=== PATIENT | female | born 2000 | race Caucasian/White ===

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

== ENCOUNTER 2019-02-28 11:53 | Emergency (ER) | payer OTHER ==
[~2019-02-28] VITALS: Ht 165.1 cm; Wt 71.8 kg
[~2019-02-28 11:53] MED LIST: CYCL5TAB PO; LIDO5DIS41 TOP; MELO15TA28 PO
[2019-02-28 11:54] VITALS: BP 131/74
[2019-02-28] MEDS ORDERED: VIGA0.02 OP (12:10)
[2019-02-28] MEDS ORDERED: NS 1,000 ML IV SCH (12:24)
[2019-02-28] MEDS ORDERED: PANTOPRAZOLE 40MG INJ (PROTONIX) (C9113) IV ONE (12:30)
[2019-02-28] MEDS ORDERED: KETOROLAC 30 MG/ML VIAL (J1885) IV ONE (12:30)
[2019-02-28] MEDS ORDERED: SUCRALFATE 1 GM TAB PO ONE (12:30)
== END 2019-02-28 12:25 | disposition home or self-care (01) ==
LOC: M ED 11:53
DX: H10.9 Unspecified conjunctivitis (principal); Z88.1 Allergy status to other antibiotic agents; Z88.6 Allergy status to analgesic agent; Z88.8 Allergy status to other drugs, medicaments and biological substances

== ENCOUNTER → 2019-11-05 | Outpatient (CLI) | payer OTHER ==
[~2019-11-05] MED LIST changes: +VIGA0.02 OP
[2019-11-05 12:21] LABS: HEMATOCRIT 43.1 % (36.0-47.0); MEAN CORPUSCULAR HEMOGLOBIN 27.6 pg (27.0-33.0); MEAN CORPUSCULAR HGB CONC 30.2 g/dl (32.0-36.5); MEAN CORPUSCULAR VOLUME 91.5 fl (80.0-96.0); PLATELET COUNT, AUTOMATED 261 10^3/uL (150-450); RED BLOOD COUNT 4.71 10^6/uL (4.00-5.40); WHITE BLOOD COUNT 4.8 10^3/uL (4.0-10.0)
--- NOTE | 2019-11-05 14:03 | REP ---
Pelvic ultrasound for pelvic pain , vaginal bleeding, question ectopic gestation: The study is performed with transabdominal, endovaginal and Doppler ultrasound assessment: The bladder is adequately distended. The uterus is anteverted and normal size measuring 6.4-0.4 x 4.1 cm. The endometrium is not thickened measuring 4 mm. Right ovary: The right ovary measures 2.4 x 1.7 x 2.2 cm and is normal size. There is an 8 mm right ovarian follicle. There is right ovarian vascular flow, the Doppler resistive index of the parenchymal arteries is 0.55. Left ovary: Left ovary is enlarged measuring 5.6 x 4.4 x 4.7 cm. There is a left ovarian cyst containing a septation measuring 4.9 x 3.9 x 4.1 cm. There is vascular flow, the Doppler resistive index of the parenchymal arteries is 0.48. There is no free fluid in the pelvis. Impression: There is no intrauterine gestation. There is a 4.9 cm left ovarian cyst containing a septation. Ectopic cannot be discounted. Laboratory and clinical follow-up is recommended. The Electronically Signed by Chandana Leon MD 11/05/2019 01:53 P
[2019-11-05 14:20] LABS: CHLAMYDIA DNA AMPLIFICATION NEGATIVE (NEGATIVE); GC DNA AMPLIFICATION NEGATIVE (NEGATIVE)
== END ==
LOC: M RAD 11:25
PROVIDERS: ATTEND Registered Nurse Maternal Newborn
DX: O26.859 Spotting complicating pregnancy, unspecified trimester (principal); O34.80 Maternal care for other abnormalities of pelvic organs, unspecified trimester; Z3A.00 Weeks of gestation of pregnancy not specified

== ENCOUNTER → 2019-11-22 | Outpatient (CLI) | payer OTHER ==
--- NOTE | 2019-11-22 10:34 | REP ---
Clinical: Left ovarian mass. Comparison: 11/05/2019. Technique: Transabdominal pelvic ultrasound followed by transvaginal examination for better evaluation of the endometrium and adnexa with color Doppler evaluation of the ovaries. Findings: Bladder is unremarkable and measures 4.2 x 1.9 x 6.2 cm. Anteverted septate uterus measures 6.9 x 2.9 x 4.6 cm. The right endometrial complex measures 7 mm thickness and the left endometrial complex measures 11 mm thickness. No further uterine or endometrial abnormality noted. Bilateral ovaries are normal in vascularity without torsion. Left ovary measures 2.2 x 1.6 x 2.0 cm (RI 0.58) and the previously noted lesion has resolved. Right ovary measures 4.2 x 2.2 x 2.9 cm (RI 0.55) and a complex hemorrhagic cyst is identified measuring 2.5 x 1.4 x 1.8 cm. No pelvic fluid or adnexal mass lesion. Impression: 1. Previously identified left hemorrhagic physiologic cyst has resolved. New hemorrhagic physiologic cyst identified in the right ovary. 2. Septate uterus. Electronically Signed by Moises Diaz MD 11/22/2019 10:25 A
== END ==
LOC: M RAD 09:33
PROVIDERS: ATTEND Obstetrics & Gynecology
DX: N83.202 Unspecified ovarian cyst, left side (principal)

== ENCOUNTER 2019-12-01 08:55 | Emergency (ER) | payer OTHER ==
[~2019-12-01] VITALS: Ht 167.6 cm; Wt 76.0 kg
[2019-12-01 08:56] VITALS: BP 142/65
[2019-12-01] MEDS ORDERED: IBUPROFEN 800 MG TAB PO ONE (09:15)
[2019-12-01] MEDS ORDERED: ACETAMINOPHEN 325 MG TAB PO ONE (09:15)
--- NOTE | 2019-12-01 09:54 | REP ---
Clinical: Trauma. Technique: Frontal view of the chest with four views of the right hemithorax. Findings: Frontal view of the chest demonstrates no acute cardiopulmonary process. Multiple views of the right hemithorax demonstrates no obvious acute rib fracture or pathology. Impression: Normal the right rib series Electronically Signed by Moises Diaz MD 12/01/2019 09:34 A
== END 2019-12-01 10:10 | disposition home or self-care (01) ==
LOC: M ED 08:55
DX: S20.211A Contusion of right front wall of thorax, initial encounter (principal); W18.2XXA Fall in (into) shower or empty bathtub, initial encounter; Y92.002 Bathroom of unspecified non-institutional (private) residence as the place of occurrence of the external cause; Z88.8 Allergy status to other drugs, medicaments and biological substances

== ENCOUNTER 2019-12-08 08:48 | Emergency (ER) | payer OTHER ==
[~2019-12-08] VITALS: Ht 165.1 cm; Wt 78.7 kg
[2019-12-08] MEDS ORDERED: ONDANSETRON 4 MG ORAL DISINTEGRATING TAB (Q0162 PER 1MG) PO ONE (09:30)
[2019-12-08] MEDS ORDERED: KETOROLAC TROMETHAMINE 10 MG TAB PO ONE (09:30)
[2019-12-08] MEDS ORDERED: NORCO, ANEXSIA 5/325MG TABLET (HYDROcodone/ACETAMINOPHEN) PO ONE (10:15)
--- NOTE | 2019-12-08 11:18 | REP ---
PELVIC ULTRASOUND: Real-time sonographic evaluation of the pelvis performed. Transabdominal and endovaginal technique is utilized. Bladder measures 5.2 x 2.1 x 7.3 cm. Uterus measures 7.6 x 2.5 x 4.0 cm. Uterus has a septate configuration. Endometrial thickness in both the right and left horns is 2 mm. There is no endometrial fluid collection. Ovaries appear normal in size and echotexture, right ovary measuring 3.4 x 2.1 x 2.4 cm and left ovary 3.2 x 1.7 x 2.3 cm. No ovarian cyst is seen. Previously noted complex cyst right ovary has resolved since the exam of 11/22/2019. There is no evidence of ovarian torsion with duplex Doppler evaluation. No free fluid is seen. Nabothian cyst subcentimeter in diameter is seen in the posterior cervix. IMPRESSION: Negative pelvis ultrasound. No ovarian cyst at this time. No free fluid. No torsion. Electronically Signed by Chandana Saleh MD 12/08/2019 03:13 P
[2019-12-08 11:41] LABS: BASO % 0.6 % (0.0-1.0); EOS # 0.1 10^3/uL (0.0-0.5); EOS % 1.1 % (0.0-3.0); HEMATOCRIT 40.4 % (36.0-47.0); HEMOGLOBIN 12.8 g/dl (12.0-15.5); LYMPH # 1.6 10^3/uL (1.5-5.0); LYMPH % 30.2 % (24.0-44.0); MEAN CORPUSCULAR HEMOGLOBIN 28.2 pg (27.0-33.0); MEAN CORPUSCULAR HGB CONC 31.7 g/dl (32.0-36.5); MONO # 0.4 10^3/uL (0.0-0.8); MONO % 6.9 % (0.0-5.0); NEUTROPHILS # 3.2 10^3/uL (1.5-8.5); PLATELET COUNT, AUTOMATED 261 10^3/uL (150-450); RED BLOOD COUNT 4.54 10^6/uL (4.00-5.40); WHITE BLOOD COUNT 5.2 10^3/uL (4.0-10.0)
[2019-12-08] MEDS ORDERED: ISOVUE-370 76% 100ML VIAL (Q9967) As Ordered ONE (11:54)
[2019-12-08 12:10] LABS: ALBUMIN 3.9 GM/DL (3.2-5.2); BILIRUBIN,DIRECT 0.1 MG/DL (0.0-0.2); BILIRUBIN,TOTAL 0.3 MG/DL (0.2-1.0)
[2019-12-08] MEDS ORDERED: MORPHINE 4 MG/ML 1ML VIAL/SYRINGE (J2270) IV ONE (12:15)
--- NOTE | 2019-12-08 12:25 | REP ---
CT of the abdomen and pelvis with IV contrast, without bowel contrast for left lower quadrant pain. There are no comparisons. The visualized lung dennis are unremarkable. The hepatic parenchyma, gallbladder, pancreas, spleen, adrenals, kidneys, and abdominal aorta are unremarkable. There is no hydronephrosis. No renal calculi. No ureteral calculi. There is no periaortic adenopathy or mass. Pelvis: The appendix is not identified, however, there is no pericecal inflammation or abscess. The uterus is unremarkable. There are follicles in each ovary. There is no dominant ovarian mass or cyst. There is no ascites or adenopathy. The pelvic bowel loops are unremarkable. Impression: Essentially negative CT of the abdomen and pelvis. Electronically Signed by Chandana Leon MD 12/08/2019 12:16 P
[2019-12-08] MEDS ORDERED: ONDANSETRON 4MG/2ML VIAL (J2405) IV ONE (12:30)
[2019-12-08 15:39] LABS: CHLAMYDIA DNA AMPLIFICATION NEGATIVE (NEGATIVE); GC DNA AMPLIFICATION NEGATIVE (NEGATIVE)
[2019-12-08] MEDS ORDERED: DIFL150T PO (16:19)
[2019-12-08 16:25] VITALS: BP 131/73
== END 2019-12-08 16:34 | disposition home or self-care (01) ==
LOC: M ED 08:48
DX: B37.3 Candidiasis of vulva and vagina (principal); Z88.8 Allergy status to other drugs, medicaments and biological substances
CPT/HCPCS: 74177; 76830; 76856; 80047; 80076; 81001; 83690; 84702; 85025; 87210; 87661; 93976; 96374; 96375; 99284; J2270; J2405; Q0162; Q9967

== ENCOUNTER → 2019-12-09 | Outpatient (CLI) | payer OTHER ==
[~2019-12-09] MED LIST changes: +ACET1TAB55 PO; +DIFL150T PO; +IBUP1TAB7 PO; +IBUP80TA PO; +PROHANCE 279.3MG/ML 15ML VIAL (A9576) As Ordered ONE; +REGL10TA6 PO
--- NOTE | 2019-12-10 09:28 | REP ---
MRI PELVIS WITHOUT AND WITH IV CONTRAST: HISTORY: Intrauterine septum. Comparison pelvic sonography, December 08, 2019. Comparison CT study, December 08, 2019. Pelvic sonography from November 22, 2019 was read as septate uterus. TECHNIQUE: Axial, coronal, and sagittal imaging planes are utilized. T1- and T2-weighted scans were included with and without fat saturation. Diffusion weighted scans and postcontrast images are included. Gadolinium enhancement dose is 15 mL of intravenous ProHance. MRI FINDINGS: Cortical and medullary bone signal intensity are normal. Urinary bladder taylor are smooth. No free fluid is seen. No pelvic mass or adenopathy is observed. Normal ovaries are seen bilaterally. Uterine external fundal contour is maintained and normal. There is a smooth broad indentation of the fundal endometrial canal measuring approximately 8 mm in greatest depth. The findings are consistent with arcuate uterus which is a mild Mullerian duct anomaly often classified as a normal variant. There is no evidence of uterine fibroid. Junctional zone and endometrial canal are unremarkable. No abnormal gadolinium enhancement is seen. Study is otherwise unremarkable. IMPRESSION: Arcuate uterus. Electronically Signed by Emir Choi MD 12/10/2019 09:31 A
== END ==
LOC: M RAD 16:13
PROVIDERS: ATTEND Obstetrics & Gynecology
DX: Q51.20 Other doubling of uterus, unspecified (principal)
CPT/HCPCS: 72197; A9576

== ENCOUNTER 2019-12-11 15:05 | Emergency (ER) | payer OTHER ==
[~2019-12-11] VITALS: Ht 165.1 cm; Wt 76.5 kg
[~2019-12-11 15:05] MED LIST changes: -ACET1TAB55 PO; -IBUP1TAB7 PO; -IBUP80TA PO; -PROHANCE 279.3MG/ML 15ML VIAL (A9576) As Ordered ONE; -REGL10TA6 PO
[2019-12-11] MEDS ORDERED: IBUP1TAB7 PO (15:17)
[2019-12-11] MEDS ORDERED: ACET1TAB55 PO (15:17)
[2019-12-11 16:25] LABS: BASO % 0.4 % (0.0-1.0); EOS # 0.1 10^3/uL (0.0-0.5); EOS % 1.2 % (0.0-3.0); HEMATOCRIT 42.5 % (36.0-47.0); HEMOGLOBIN 13.4 g/dl (12.0-15.5); LYMPH # 1.9 10^3/uL (1.5-5.0); LYMPH % 28.7 % (24.0-44.0); MEAN CORPUSCULAR HEMOGLOBIN 28.2 pg (27.0-33.0); MEAN CORPUSCULAR HGB CONC 31.5 g/dl (32.0-36.5); MEAN CORPUSCULAR VOLUME 89.5 fl (80.0-96.0); MONO # 0.4 10^3/uL (0.0-0.8); MONO % 5.4 % (0.0-5.0); NEUTROPHILS # 4.3 10^3/uL (1.5-8.5); NEUTROPHILS % 64.2 % (36.0-66.0); PLATELET COUNT, AUTOMATED 291 10^3/uL (150-450); RED BLOOD COUNT 4.75 10^6/uL (4.00-5.40); WHITE BLOOD COUNT 6.7 10^3/uL (4.0-10.0)
[2019-12-11] MEDS ORDERED: KETOROLAC 30 MG/ML VIAL (J1885) IM ONE (16:45)
[2019-12-11] MEDS ORDERED: METOCLOPRAMIDE 10 MG TAB PO ONE (16:45)
[2019-12-11] MEDS ORDERED: KETOROLAC 30 MG/ML VIAL (J1885) As Ordered ONE (16:47)
[2019-12-11] MEDS ORDERED: REGL10TA6 PO (16:53)
[2019-12-11] MEDS ORDERED: IBUP80TA PO (17:14)
[2019-12-11 17:15] VITALS: BP 118/67
== END 2019-12-11 17:18 | disposition home or self-care (01) ==
LOC: M ED 15:05
DX: R10.9 Unspecified abdominal pain (principal); R11.0 Nausea; Z88.8 Allergy status to other drugs, medicaments and biological substances; Z79.899 Other long term (current) drug therapy
CPT/HCPCS: 80047; 81001; 85025; 96372; 99283; J1885

== ENCOUNTER 2019-12-25 09:55 | Emergency (ER) | payer OTHER ==
[~2019-12-25] VITALS: Ht 165.1 cm; Wt 77.8 kg
[~2019-12-25 09:55] MED LIST changes: +ACET1TAB55 PO; +IBUP1TAB7 PO; +IBUP80TA PO; +REGL10TA6 PO
[2019-12-25] MEDS ORDERED: IBUP-1114 PO (10:00)
[2019-12-25 11:03] LABS: INFLUENZA A AMPLIFICATION NEGATIVE (NEGATIVE); INFLUENZA B AMPLIFICATION NEGATIVE (NEGATIVE)
[2019-12-25 12:01] VITALS: BP 129/74
--- NOTE | 2019-12-25 13:51 | REP ---
REASON: Cough. TWO-VIEW CHEST: COMPARISON: No priors. FINDINGS: The superior mediastinal structures are midline. The cardiac silhouette is unremarkable in size, shape, and position. The diaphragmatic surfaces of the lungs are regular, and the costophrenic angles are clear. The pulmonary dennis are clear. The imaged osseous structures are intact. IMPRESSION: There is no acute cardiopulmonary disease. Unreviewed
== END 2019-12-25 12:05 | disposition home or self-care (01) ==
LOC: M ED 09:55
DX: J02.8 Acute pharyngitis due to other specified organisms (principal); Z88.1 Allergy status to other antibiotic agents; Z88.8 Allergy status to other drugs, medicaments and biological substances

== ENCOUNTER 2020-01-28 21:54 | Emergency (ER) | payer OTHER ==
[~2020-01-28] VITALS: Ht 165.1 cm; Wt 80.3 kg
[~2020-01-28 21:54] MED LIST changes: +IBUP-1114 PO
[2020-01-28] MEDS ORDERED: NS 1,000 ML IV ONE (22:30)
[2020-01-28] MEDS ORDERED: KETOROLAC 30 MG/ML 1ML VIAL (J1885 PER 15MG) IV ONE (22:30)
[2020-01-28] MEDS ORDERED: ONDANSETRON 4MG/2ML VIAL (J2405 PER 1MG) IV ONE (22:30)
[2020-01-28 22:47] LABS: BASO % 0.5 % (0.0-1.0); EOS # 0.1 10^3/uL (0.0-0.5); EOS % 1.4 % (0.0-3.0); HEMATOCRIT 39.9 % (36.0-47.0); HEMOGLOBIN 12.7 g/dl (12.0-15.5); LYMPH # 2.2 10^3/uL (1.5-5.0); LYMPH % 24.5 % (24.0-44.0); MEAN CORPUSCULAR HEMOGLOBIN 27.9 pg (27.0-33.0); MEAN CORPUSCULAR HGB CONC 31.8 g/dl (32.0-36.5); MEAN CORPUSCULAR VOLUME 87.5 fl (80.0-96.0); MONO # 0.8 10^3/uL (0.0-0.8); MONO % 8.6 % (0.0-5.0); NEUTROPHILS # 5.7 10^3/uL (1.5-8.5); NEUTROPHILS % 64.8 % (36.0-66.0); PLATELET COUNT, AUTOMATED 282 10^3/uL (150-450); RED BLOOD COUNT 4.56 10^6/uL (4.00-5.40); WHITE BLOOD COUNT 8.8 10^3/uL (4.0-10.0)
[2020-01-28] MEDS ORDERED: ACETAMINOPHEN 500 MG TAB PO ONE (23:15)
--- NOTE | 2020-01-28 23:35 | REPVR ---
PROCEDURE INFORMATION: Exam: US Pelvis Complete, Transabdominal Exam date and time: 01/28/2020 11:12 PM Age: 19 years old Clinical indication: Pelvic pain; Additional info: Pelvic pain severe TECHNIQUE: Imaging protocol: Real-time transabdominal pelvic ultrasound with image documentation. Complete exam. COMPARISON: US PELVIC NON-OB COMPLETE 12/08/2019 10:23 AM FINDINGS: Uterus/cervix: The uterus measures 6.3 x 2.9 x 4.8 cm. The uterus is anteverted. Septate uterus is again noted. The endometrium measures up to 13 mm. Right adnexa: The right ovary measures 2.3 x 2.1 x 2.1 cm. Normal vascular flow. Although the technologist describes a ?hemorrhagic right follicle," the images provided demonstrate no discrete right adnexal lesion. Left adnexa: The left ovary measures 2.3 x 1.2 x 1.1 cm. Normal vascular flow. Free fluid: No free fluid is seen in the cul-de-sac. Bladder: The bladder is nondistended. IMPRESSION: Septate uterus. Electronically signed by: Giovanna Banks On 01/28/2020 23:35:09 PM
[2020-01-29 00:44] VITALS: BP 136/79
--- NOTE | 2020-01-29 07:57 | ED PDOC ---
Post-Departure Follow-Up pelvic us faxed to [facility] for fu Minh Clemons MD Jan 29, 2020 07:57
== END 2020-01-29 00:14 | disposition home or self-care (01) ==
LOC: M ED 21:54
DX: R10.2 Pelvic and perineal pain (principal); Z32.01 Encounter for pregnancy test, result positive; Q51.818 Other congenital malformations of uterus; Z88.8 Allergy status to other drugs, medicaments and biological substances; Z88.1 Allergy status to other antibiotic agents; Z87.42 Personal history of other diseases of the female genital tract
CPT/HCPCS: 76830; 76856; 80047; 81001; 84702; 85025; 93976; 96374; 99284; J2405

== ENCOUNTER → 2020-05-26 | Outpatient (CLI) | payer OTHER ==
[~2020-05-26] MED LIST changes: +AMPICILLIN 2 GM VIAL (J0290 PER 500MG) As Ordered ONE; +OXYTOCIN 30 UNITS IN 0.9% NaCl 500ML IV BAG (J2590) As Ordered ONE
[2020-07-22 19:03] LABS: APPEARANCE, URINE CLEAR (CLEAR); BACTERIA, URINE AUTO 1+ (NEGATIVE); BILIRUBIN, URINE AUTO NEGATIVE (NEGATIVE); BLOOD, URINE BLOOD 3+ (NEGATIVE); COLOR, URINE STRAW (YELLOW); GLUCOSE, URINE (UA) AUTO NEGATIVE (NEGATIVE); KETONE, URINE AUTO NEGATIVE (NEGATIVE); LEUKOCYTE ESTERASE, URINE AUTO NEGATIVE (NEGATIVE); NITRITE, URINE AUTO NEGATIVE (NEGATIVE); PROTEIN, URINE AUTO NEGATIVE (NEGATIVE); RBC, URINE AUTO TNTC /HPF (0-3); SQUAMOUS EPITHELIAL CELL UR AU 1 /HPF (0-6); UROBILINOGEN, URINE AUTO 0.2 mg/dL (0.0-2.0); WBC, URINE AUTO 1 /HPF (0-3)
[2020-07-22 19:05] LABS: BASO % 0.3 % (0.0-1.0); EOS % 0.3 % (0.0-3.0); HEMATOCRIT 36.8 % (36.0-47.0); HEMOGLOBIN 11.9 g/dl (12.0-15.5); LYMPH # 1.5 10^3/uL (1.5-5.0); LYMPH % 12.8 % (24.0-44.0); MEAN CORPUSCULAR HEMOGLOBIN 28.7 pg (27.0-33.0); MEAN CORPUSCULAR HGB CONC 32.3 g/dl (32.0-36.5); MEAN CORPUSCULAR VOLUME 88.9 fl (80.0-96.0); MONO # 0.5 10^3/uL (0.0-0.8); MONO % 4.5 % (0.0-5.0); NEUTROPHILS # 9.6 10^3/uL (1.5-8.5); NEUTROPHILS % 81.7 % (36.0-66.0); PLATELET COUNT, AUTOMATED 237 10^3/uL (150-450); RED BLOOD COUNT 4.14 10^6/uL (4.00-5.40); WHITE BLOOD COUNT 11.8 10^3/uL (4.0-10.0)
== END ==
LOC: M LDO 11:00
PROVIDERS: ATTEND Registered Nurse Maternal Newborn
DX: O26.892 Other specified pregnancy related conditions, second trimester (principal); R10.31 Right lower quadrant pain; Z3A.21 21 weeks gestation of pregnancy
CPT/HCPCS: 36415; 76857; 81001; 85025; 87086; G0378; G0463

== ENCOUNTER 2020-06-09 12:48 | Outpatient (CLI) | payer OTHER ==
[~2020-06-09] VITALS: Ht 165.1 cm; Wt 91.7 kg
[~2020-06-09 12:48] MED LIST changes: -AMPICILLIN 2 GM VIAL (J0290 PER 500MG) As Ordered ONE; -OXYTOCIN 30 UNITS IN 0.9% NaCl 500ML IV BAG (J2590) As Ordered ONE
[2020-06-09 13:04] VITALS: BP 132/85
[2020-06-09] MEDS ORDERED: FIORICET TAB PO ONE ×2 (14:30→18:30)
[2020-06-09] MEDS ORDERED: D5W/LR 1,000 ML IV SCH (15:15)
[2020-06-09 19:38] VITALS: BP 130/78
--- NOTE | 2020-07-11 14:19 | HPE ---
DATE OF SERVICE: June 09, 2020 HISTORY OF PRESENT ILLNESS: This patient is a 19-year-old 1, para 0, LMP 12/27/18, EDC 10/03/20. She was then 23 and 5/7 weeks. She came to Labor and Delivery by ambulance from [facility] because she had a history of a headache, had some hot flashes, sweating, nausea, and vomiting. LABORATORY: Labs showed she was A negative, HIV negative, hepatitis negative, RPR negative, rubella immune, varicella nonimmune. Urine was GBS positive. Gonorrhea and chlamydia are negative. RISK FACTORS: She is GBS positive, A negative, cystic fibrosis carrier, has questionable septate uterus, and has a STD treated in 2019. PHYSICAL EXAMINATION: On admission, her blood pressure was 132/85, respirations 20, pulse 95, temperature 98.0. Urine is 1020. PH is 6, 250 blood. On examination, she appeared to be significantly dehydrated. She was light sensitive, headache. She had a Category I strip with no contractions. Our plan of care was to hydrate the patient. Place her on analgesics. Once rehydrated and headache resolved, discharge with precautions. After rehydration and analgesics, the patient's headache resolved. She did not have an aura. She did not have any right upper quadrant pain. She did not have any nausea or vomiting. She was discharged, undelivered, with appropriate precautions and to follow up with the clinic appointments at the routine visit. EDWARD
== END 2020-06-09 19:48 | disposition home or self-care (01) ==
LOC: M LDO 12:48
PROVIDERS: ATTEND Obstetrics & Gynecology
DX: O99.352 Diseases of the nervous system complicating pregnancy, second trimester (principal); O23.42 Unspecified infection of urinary tract in pregnancy, second trimester; R51 Headache; Z3A.23 23 weeks gestation of pregnancy
CPT/HCPCS: 59025; G0378; G0463

== ENCOUNTER → 2020-07-13 | Outpatient (CLI) | payer OTHER ==
--- NOTE | 2020-07-13 15:54 | REPVR ---
PROCEDURE INFORMATION: Exam: US After First Trimester, Transabdominal Exam date and time: 07/13/2020 3:25 PM Age: 19 years old Clinical indication: Screening exam; Routine US, uterus; Additional info: Growth, bpp TECHNIQUE: Imaging protocol: Real-time transabdominal obstetrical ultrasound of the maternal pelvis and a second or third trimester with image documentation. COMPARISON: Pelvis, limited US 05/26/2020 12:17 PM FINDINGS: Gestation: Single live intrauterine gestation. heart rate: 144 bpm. Presentation: There is a single intrauterine gestation in cephalic position. Placenta: The placenta is anterior grade 1 and not previa. Amniotic fluid: Amniotic fluid is normal for gestational age. Amniotic fluid index: Amniotic fluid index is 15.2. ANATOMY: Midline falx: Normal. Cerebellum: Unremarkable. Cerebral ventricles: Unremarkable. Cisterna magna: Unremarkable. Septum pellucidum: Midline unremarkable. Upper lip and nose: Unremarkable. Heart four-chamber view, heart size and position: Unremarkable. kidneys: Unremarkable. stomach: Unremarkable. urinary bladder: Unremarkable. Spine: Not imaged. Umbilical cord insertion site into the abdomen: Unremarkable. Umbilical cord vessel number: 3. Arms and hands: Not imaged. Legs and feet: Not imaged. BIOMETRY: Gestational age (AUA): Ultrasonographic average age is 29 weeks 2 days. Estimated date of confinement is . Estimated due date (AUA): See "Gestational age (AUA)" finding. Estimated weight: Estimated weight 1297 g. Biparietal diameter: Biparietal diameter, 29 weeks 6 days, 85th percentile. Head circumference: Head circumference, 29 weeks 4 days, 58 percentile. Abdominal circumference: Abdominal circumference, 28 weeks 4 days, 54th percentile. Femur length: Femur length, 28 weeks 6 days, 58th percentile. MATERNAL ANATOMY: Uterus: Unremarkable. Cervix: Unremarkable. Right adnexa: Ovary is obscured by overlying bowel gas. Left adnexa: Ovary is obscured by overlying bowel gas. IMPRESSION: Single live intrauterine gestation. The spine was not imaged. The extremities were not imaged. Consider repeat imaging if the structures are of concern. Previous examination had no estimated dated confinement on the images. Therefore I cannot determine if there has been appropriate or non appropriate interval growth. Electronically signed by: Nav Pineda On 07/13/2020 15:54:49 PM
== END ==
LOC: M RAD 14:27
PROVIDERS: ATTEND Registered Nurse Maternal Newborn
DX: O16.3 Unspecified maternal hypertension, third trimester (principal); Z3A.28 28 weeks gestation of pregnancy

== ENCOUNTER 2020-08-28 09:45 | Outpatient (CLI) | payer OTHER ==
[~2020-08-28] VITALS: Ht 165.1 cm; Wt 98.3 kg
[2020-08-28] MEDS ORDERED: LR 1,000 ML IV SCH (10:00)
[2020-08-28] MEDS ORDERED: LR 1,000 ML IV ONE (10:00)
[2020-08-28] MEDS ORDERED: FIORICET TAB PO ONE (10:00)
[2020-08-28 10:02] VITALS: BP 130/78
[2020-08-28] MEDS ORDERED: MAPA500T2 PO (10:06)
[2020-08-28] MEDS ORDERED: PRENTAB9 PO (10:06)
[2020-08-28] MEDS ORDERED: ASPI81CH33 PO (10:06)
[2020-08-28 10:17] VITALS: BP 130/77
[2020-08-28 10:32] VITALS: BP 129/71
[2020-08-28 10:35] VITALS: BP 127/73
--- NOTE | 2020-08-28 10:40 | REP ---
INDICATION: Decelerations and cHTN. COMPARISON: 07/13/2020. TECHNIQUE: Real-time sonographic evaluation of gravid uterus performed. FINDINGS: There is single living intrauterine gestation. The estimated gestational age is 34 weeks 6 days, EDC 10/03/2020. position cephalic. Placenta anterior grade 1 with no previa. heart rate 134 beats per minute. Amniotic fluid within normal limits, GURJIT 18.6 (normal 7.9-24.9). Biophysical profile score 8/8. SD ratio umbilical artery 2.30, normal 1.69-3.60 RI 0.57, normal 0.46-0.72. IMPRESSION: Biophysical profile score 8/8. <Electronically signed by Chandana Saleh > 08/28/20 [id number]
[2020-08-28 11:06] LABS: ALBUMIN 2.8 GM/DL (3.2-5.2); ALT/SGPT 15 U/L (12-78); BILIRUBIN,TOTAL 0.4 MG/DL (0.2-1.0); BLOOD UREA NITROGEN 8 MG/DL (7-18); CALCIUM LEVEL 8.9 MG/DL (8.5-10.1); CARBON DIOXIDE LEVEL 25 MEQ/L (21-32); CHLORIDE LEVEL 108 MEQ/L (98-107); CREATININE FOR GFR 0.59 MG/DL (0.55-1.30); GLUCOSE, FASTING 68 MG/DL (70-100); LDH LACTATE DEHYDROGENASE 231 U/L (84-246); POTASSIUM SERUM 4.2 MEQ/L (3.5-5.1); SODIUM LEVEL 139 MEQ/L (136-145); TOTAL PROTEIN 6.3 GM/DL (6.4-8.2); URIC ACID 2.7 MG/DL (2.6-6.0)
[2020-08-28 11:23] LABS: HEMATOCRIT 35.8 % (36.0-47.0); HEMOGLOBIN 11.3 g/dl (12.0-15.5); MEAN CORPUSCULAR HEMOGLOBIN 26.5 pg (27.0-33.0); MEAN CORPUSCULAR HGB CONC 31.6 g/dl (32.0-36.5); MEAN CORPUSCULAR VOLUME 83.8 fl (80.0-96.0); PLATELET COUNT, AUTOMATED 333 10^3/uL (150-450); RED BLOOD COUNT 4.27 10^6/uL (4.00-5.40); WHITE BLOOD COUNT 9.4 10^3/uL (4.0-10.0)
[2020-08-28 11:27] VITALS: BP 128/69
--- NOTE | 2020-08-28 14:19 | IPNPDOC ---
Obstetrical Progress Note Date of Service Aug 28, 2020 Subjective 19 yo at 34w6d with JOJO: 10/03/2020 sent from the clinic to L&D for prol onged monitoring and BPP for variable decels in the clinic during APFTs. She reports headache today and only took tylenol once last night. She denies chest pain, RUQ pain, visual changes, contractions, leaking of fluid, vaginal bleeding, and reports positive movement. She reports that headache has gotten better after dose of fioricet and IV fluids. Labs and BPP reviewed 05/20 GURJIT: 18.6 cm and BP has been stable since she arrived. Prolonged monitoring for 90 minutes with Category 1 EFM Objective Laboratory Tests 08/28/20 10:05 08/28/20 10:07 Vital Signs Date Time Temp Pulse Resp B/P (MAP) Pulse Ox O2 Delivery O2 Flow Rate FiO2 08/28/20 10:02 97.3 96 16 130/78 (95) Assessment Heart Rate (FHR): 125 Variability: Moderate Accelerations: Present Decelerations: None Heart Rate Tracing: Category I Tocometer Contractions: Yes Frequency: other (Occasional) Assessment and Plan Age: 19 : 1 Term: 0 Pre-term: 0 Abortions: 0 Livin EGA at Admission: 34 (+6) Weeks & Days 34w6d Status: Reassuring Anticipate: Other (Discharge to home, certified not in labor) Additional Comments PTL and PIH precautions discussed Return to clinic for routine COB/APFTs or sooner JAMEE LOVE CNM Aug 28, 2020 10:02
[2020-08-29] MEDS ORDERED: FIOR1CAP PO (14:07)
== END 2020-08-28 11:48 | disposition home or self-care (01) ==
LOC: M LDO 09:45
PROVIDERS: ATTEND Registered Nurse Maternal Newborn
DX: O36.8330 Maternal care for abnormalities of the fetal heart rate or rhythm, third trimester, not applicable or unspecified (principal); R51.9 Headache, unspecified; Z3A.34 34 weeks gestation of pregnancy
CPT/HCPCS: 36415; 59025; 76815; 76819; 76820; 80053; 83615; 84550; 85027; 96360; G0378; G0463

== ENCOUNTER 2020-08-29 13:49 | Outpatient (CLI) | payer OTHER ==
[~2020-08-29] VITALS: Ht 165.1 cm; Wt 105.2 kg
[~2020-08-29 13:49] MED LIST changes: +ASPI81CH33 PO; +MAPA500T2 PO; +PRENTAB9 PO
[2020-08-29 14:03] VITALS: BP 145/92
[2020-08-29] MEDS ORDERED: FIOR1CAP PO (14:07)
[2020-08-29 14:43] VITALS: BP 128/67
[2020-08-29 15:27] VITALS: BP 161/81
--- NOTE | 2020-08-29 15:27 | IPNPDOC ---
Text Note Date of Service The patient was seen on 08/29/20. NOTE 08/29/20 1530 HOURS 19 YO AT 34.6 WEEKS SEEN IN L AND D YESTERDAY FOR EXTENDED MONITORING WITH ISSUE HEADACHE CHRONIC NO OTHER SYMPTOMS . TODAY AT LABOR HISTORY PELVIC PRESSURE NO VAGINAL LOSS NO BLEEDING. ON MONITOR 1 HOUR 1 CONTRACTION CATEGORY 1 STRIP MODERATE VARIABILITY NO DECELERATIONS . GBS CULTURE DONE . PLANS FOR APPOINTMENT SCHEDULED AT [facility] . PRECAUTIONS GIVEN . DISCHARGED UNDELIVERED VS,Fishbone, I+O VS, Fishbone, I+O Vital Signs Date Time Temp Pulse Resp B/P (MAP) Pulse Ox O2 Delivery O2 Flow Rate FiO2 08/29/20 14:43 96 20 128/67 (87) 08/29/20 14:03 97.4 98 Room Air URINE 1005 PH 7 + 1 LEUCOCYTES George Juárez MD Aug 29, 2020 15:27
[2020-08-29 15:32] VITALS: BP 139/84
== END 2020-08-29 15:35 | disposition home or self-care (01) ==
LOC: M LDO 13:49
PROVIDERS: ATTEND Obstetrics & Gynecology
DX: O99.353 Diseases of the nervous system complicating pregnancy, third trimester (principal); R51.9 Headache, unspecified; Z3A.34 34 weeks gestation of pregnancy
CPT/HCPCS: 59025; 87081; G0378; G0463

== ENCOUNTER 2020-08-30 10:24 | Outpatient (CLI) | payer OTHER ==
[~2020-08-30] VITALS: Ht 165.1 cm; Wt 99.8 kg
[~2020-08-30 10:24] MED LIST changes: +FIOR1CAP PO
[2020-08-30 10:35] VITALS: BP 133/81
[2020-08-30 11:40] VITALS: BP 133/81
== END 2020-08-30 11:51 | disposition home or self-care (01) ==
LOC: M LDO 10:24
PROVIDERS: ATTEND Obstetrics & Gynecology
DX: O47.9 False labor, unspecified (principal); O36.8130 Decreased fetal movements, third trimester, not applicable or unspecified; Z3A.34 34 weeks gestation of pregnancy
CPT/HCPCS: 59025; 76815; G0378; G0463

== ENCOUNTER 2020-09-20 10:28 | Inpatient (IN) | payer OTHER ==
[~2020-09-20] VITALS: Ht 165.1 cm; Wt 101.3 kg
[2020-09-20] VITALS (13 sets, daily range): BP systolic 103–137; BP diastolic 57–91
[2020-09-20] MEDS ORDERED: VITA25TA3 PO (10:40)
[2020-09-20] MEDS ORDERED: BENA25CA4 PO (10:40)
[2020-09-20] MEDS ORDERED: GNP250TA9 PO (10:40)
[2020-09-20] MEDS ORDERED: PENICILLIN G POTASSIUM IV 5 MU in D5W MINI-BAG PLUS 100 ML IV STA ×2 (11:04→23:45)
--- NOTE | 2020-09-20 11:23 | HPEPDOC ---
Obstetrical History & Physical General Date of Admission Sep 20, 2020 at 10:28 History of Present Illness 19yo dangelo [id number] @38+0 presenting for IOL for CHTN Chief Complaint: Induction of labor Information Provided By: Patient Age: 19 : 1 Term: 0 Pre-term: 0 Abortions: 0 Livin Care Care: Good Care Dating Final EDC: Oct 03, 2020 Final EDC for Daily Update: Oct 03, 2020 Final EDC by: LMP LMP: Dec 28, 2019 EGA at Admission: 38 Antepartum Course Diagnos(e)s CHTN, excessive weight gain, GBS UTI, Varicella NI, CF carrier Height (inches): 65 Pre- weight (lbs.): 168 Admission Weight (lbs.): 220 Change in Weight (lbs.): 52 Past Medical History Past Obstetrical History : Past Obstetrical History: [employer] 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 History: Endometriosis, History of STD, Other (questionable septate uterus) Past Medical History Medical History overweight, A neg, cf carrier, Varicella NI Surgical History: Denies/None Family History Significant Family History: No pertinent family hx Social History Marital Status: Family situation: Spouse/partner home Psychosocial History: No pertinent psych hx * Smoker: non-smoker Alcohol: Denies Drugs: denies Abuse Violence Screening Have you been hit/kicked/slapp: No Have you been sexually assault: No Imunizations Tdap status: current Influenza Status: needs Allergies Coded Allergies: No Known Allergies (Unverified , 08/28/20) Medications Scheduled Diphenhydramine HCl (Benadryl) 25 Mg Capsule, 1 CAP PO QPM Magnesium Oxide (Magnesium) 250 Mg Tablet, 1 TAB PO DAILY No.137/Iron/Folic Acd ( Vitamin Tablet) 1 Each Tablet, 1 TAB PO DAILY Riboflavin (Vitamin B2) (Vitamin B-2) 25 Mg Tablet, 1 TAB PO DAILY Scheduled PRN Butalb/Acetaminophen/Caffeine (Fioricet 50-300-40 mg Capsule) 1 Each Capsule, 1 CAP PO Q6HP PRN for PAIN Physical Examination Physical Examination GENERAL: Alert and oriented times three. BREAST: . ABDOMEN: Gravid and non-tender to touch. FETUS: Is vertex (VTX) by sterile vaginal examination (SVE), fetus is vertex (VTX) by Nayan. HEART RATE: Regular rate and rhythm. LUNGS: Clear to auscultation (CTA). EXTREMITIES: No edema. No clonus. Deep tendon reflexes (DTRs) + . Vital Signs/I&O Vital Signs Date Time Temp Pulse Resp B/P (MAP) Pulse Ox O2 Delivery O2 Flow Rate FiO2 09/20/20 10:45 97.7 114 18 134/79 (97) 98 Laboratory Data 24H LABS Laboratory Tests 2 09/20/20 10:46: Serology Scanned Report Hepatitis B Testing Pertinent Laboratoy Data Blood Type: A- RBC Antibody Screen: Negative HIV: Negative Hepatitis B: Negative Rapid Plasma Reagin: Nonreactive Rubella: Immune Varicella: Nonreactive Chlamydia/Gonorrhea: Negative Group B Streptococcus: Positive Glucose Tolerance Test: 147 (3hr gtt 90/125/108/103) Anatomy Ultrasound Placenta Location: Anterior Normal Anatomy: Yes Placenta Previa: No Vaginal Examination Dilation: 1cm Effacement: 50% Station: -2 Cervical Consistency: Medium Cervical Position: Posterior Presentation: Cephalic presentation (by Sukumar) Position: Vertex (occiput) Assessment Heart Rate (FHR): 120 Variability: Moderate Accelerations: Positive Decelerations: None Tocometer Contractions: No Strength: resting tone palp/soft Multi-drug resistant Organism: No history of MDRO Assessment/Plan Assessment Monica is a 19-year-old (G)1 para (P)0 at 38+0 weeks by LMP. Presents to Labor and Delivery (L&D) for scheduled IOL for CHTN, problem list: excessive weight gain GBS UTI, Varicella NI, A-, rhogam completed at 28wks. Plan Admit and orient. 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 Diet: regular during cervical ripening. Group B Streptococcus (GBS) positive. GBS prophylaxis per protocol in active labor. Labs and intravenous (IV) per unit protocol. Saline lock during cervical ri pening, encourage oral hydration. Counseled on Pitocin and induction of labor (IOL) agents including Cytotec and cervical catheter. 25mcg Cytotec SL x1. Cervical catheter filled to 80/80, placed with cervical exam. Continuous efm x2 for one hour after Cytotec administration. Consider additional induction agents. Evaluate for change as indicated. Anticipate [normal spontaneous delivery ()]. C-S as appropriate. LISA WHITFIELD CNM Sep 20, 2020 11:23
[2020-09-20 11:33] LABS: HEMATOCRIT 35.1 % (36.0-47.0); MEAN CORPUSCULAR HEMOGLOBIN 25.6 pg (27.0-33.0); MEAN CORPUSCULAR HGB CONC 31.3 g/dl (32.0-36.5); MEAN CORPUSCULAR VOLUME 81.6 fl (80.0-96.0); PLATELET COUNT, AUTOMATED 324 10^3/uL (150-450); WHITE BLOOD COUNT 10.1 10^3/uL (4.0-10.0)
[2020-09-20] MEDS ORDERED: miSOPROStol 25 MCG 1/4 TAB (S0191) PO ONE (12:30)
[2020-09-20] MEDS ORDERED: PROMETHAZINE INJ 25 MG/ML VIAL (J2550) IV ONE (13:30)
[2020-09-20] MEDS ORDERED: BUTORPHANOL 2 MG/ML INJ (J0595) IV ONE (13:30)
[2020-09-20] MEDS ORDERED: PENICILLIN G POTASSIUM IV 2.5 MU in IV 1 EA IV SCH (15:15)
--- NOTE | 2020-09-20 16:41 | IPNPDOC ---
Obstetrical Progress Note Date of Service Sep 20, 2020 Subjective Pt resting on Stadol and phenergan, cervical catheter in place Objective Vital Signs Date Time Temp Pulse Resp B/P (MAP) Pulse Ox O2 Delivery O2 Flow Rate FiO2 09/20/20 15:31 18 09/20/20 15:10 86 137/78 (97) 09/20/20 15:01 Room Air 09/20/20 13:38 97.3 09/20/20 10:45 98 Assessment Heart Rate (FHR): 120 Variability: Moderate Accelerations: Positive Decelerations: None Heart Rate Tracing: Category I Tocometer Contractions: No Strength: resting tone palp/soft Assessment and Plan Age: 19 : 1 Term: 0 Pre-term: 0 Abortions: 0 Livin EGA at Admission: 38 Status: Reassuring Group B Streptococcus: Positive Anticipate: Vaginal Delivery Additional Comments continuous efm x2, saline lock iv, encourage oral hydration, cervical catheter in place, 50mcg cytotec SL x1, monitor for change in or maternal status, anticipate need for additional induction agents, anticipate vaginal delivery Report given to Dr. Francis for change of shift. LISA WHITFIELD CNM Sep 20, 2020 16:40
[2020-09-20] MEDS ORDERED: miSOPROStol 50 MCG 1/2 TAB (S0191) PO ONE (16:45)
[2020-09-20] MEDS ORDERED: **PENDING PCN ENTRY XX SCH (21:00)
--- NOTE | 2020-09-20 23:43 | IPNPDOC ---
Obstetrical Progress Note Date of Service Sep 20, 2020 Subjective Patient not having any pain, resting comfortably in bed. Objective Vital Signs Date Time Temp Pulse Resp B/P (MAP) Pulse Ox O2 Delivery O2 Flow Rate FiO2 09/20/20 22:25 98.4 99 18 118/65 (82) 09/20/20 19:13 98 Room Air Assessment Heart Rate (FHR): 125 Variability: Moderate Accelerations: Positive Decelerations: None Heart Rate Tracing: Category I Tocometer Contractions: Yes Frequency: irregular Assessment and Plan Status: Reassuring Group B Streptococcus: Positive Anticipate: Vaginal Delivery Additional Comments 19yo at 38+1wks admitted for IOL for CHTN (no meds). She has had only 1 mild-ranging BP since admission and remained asymptomatic. Dupont bulb fell out at 1855, however, she had received cytotec at 1815. Will now start pitocin protocol for continued IOL. GBS+, will start PCN at this time. Patient may have epidural when desired. Patient desires to proceed, safe to continue. NERISSA BARLOW DO Sep 20, 2020 23:43
[2020-09-20] MEDS ORDERED: OXYTOCIN DRIP 30 UNITS in IV 1 EA IV SCH (23:45)
[2020-09-21] VITALS (72 sets, daily range): BP systolic 88–180; BP diastolic 50–96
[2020-09-21] MEDS ORDERED: FENTANYL 2MCG/ML ROPIVACAINE 0.2% IN 0.9% NACL 100ML IVBAG As Ordered ONE (02:16)
[2020-09-21] MEDS ORDERED: EPIDURAL COMMENT XX SCH (02:50)
[2020-09-21] MEDS ORDERED: ONDANSETRON 4MG/2ML VIAL IV PRN (02:50)
[2020-09-21] MEDS ORDERED: REFRIGERATOR IV KEYS XX PRN (02:50)
[2020-09-21] MEDS ORDERED: LACTATED RINGER'S 1000 ML IV PRN (02:50)
[2020-09-21] MEDS ORDERED: EPIDURAL/PCA KEYS XX PRN (02:50)
[2020-09-21] MEDS ORDERED: diphenhydrAMINE 50MG/ML VIAL (J1200) IV PRN (02:50)
[2020-09-21] MEDS ORDERED: NALOXONE INJ 0.4MG/1ML VIAL (J2310 PER 1MG) IV PRN (02:50)
[2020-09-21] MEDS: FENTANYL/ROPIVACAINE/NACL BAG 100 ML EPIDURAL SCH ×2 (03:12→12:52)
[2020-09-21] MEDS: ePHEDrine SULFATE 25 MG/5 ML(5MG/ML) SYRINGE IV PRN ×3 (04:12→05:56)
[2020-09-21] MEDS: PENICILLIN G POTASSIUM IV 2.5 MU in IV 1 EA IV SCH ×4 (04:21→16:04)
[2020-09-21] MEDS: LR 1,000 ML IV SCH ×3 (08:12→17:55)
--- NOTE | 2020-09-21 08:35 | IPNPDOC ---
Obstetrical Progress Note Date of Service Sep 21, 2020 Objective Vital Signs Date Time Temp Pulse Resp B/P (MAP) Pulse Ox O2 Delivery O2 Flow Rate FiO2 09/21/20 07:25 75 18 117/62 (80) 09/21/20 07:10 97.5 09/20/20 19:13 98 Room Air Assessment Variability: Moderate Accelerations: None Decelerations: Variable Heart Rate Tracing: Category II Sterile Vaginal Examination Dilation: 5 cm Effacement (%): 80% Station: -3 Assessment and Plan Group B Streptococcus: Positive Additional Comments Notified via phone by staff air tactical officer at 0717 of concerns for FHRT with variable decels and occasional late or prolonged decels since epidural placement at 0300 if pitocin at 6mU/min. Patient has been noted to have periods of hypotension and has required 3 doses of ephedrine since epidural placement along with several IV boluses and multiple positional changes reported by staff air tactical officer. RN noted SVE at 0700 was 5/80/-3. Pitocin at 4mU/min and status reassuring but when increased to adequate ctx's at 6mU/min, FHRT becomes cat II. Discussed with staff air tactical officer that recommend anesthesia be consulted to decrease epidural infusion and support blood pressure. Discussed to keep pitocin at 4mU/min instead of increasing to 6mU/min to promote better tolerance of labor even if ctx's are inadequate at this time. We discussed that if status reassuring after anesthesia evaluation, may consider increasing pitocin protocol by 1mU/min to 5mU/min instead of increasing to 6mU/min. Membranes intact at this time, consider AROM once able. PCN for GBS ppx q4h (has received 2 doses thus far). Will continue to monitor closely at this time. Report called to Dr. Saenz transferring care at 0730. NERISSA BARLOW DO Sep 21, 2020 08:34
[2020-09-21] MEDS ORDERED: TERBUTALINE SULFATE 1 MG/ML VIAL (J3105) As Ordered ONE (09:16)
--- NOTE | 2020-09-21 09:52 | IPNPDOC ---
Obstetrical Progress Note Date of Service Sep 21, 2020 Subjective To room for acceptance of care. Patient denied pain or pressure. She has no complaints at this time. Objective Vital Signs Date Time Temp Pulse Resp B/P (MAP) Pulse Ox O2 Delivery O2 Flow Rate FiO2 09/21/20 08:54 67 18 127/72 (90) 09/21/20 07:10 97.5 09/20/20 19:13 98 Room Air Assessment Heart Rate (FHR): 140 Variability: Moderate Accelerations: Present Decelerations: Late, Variable, Intermittent Heart Rate Tracing: Category II Tocometer Contractions: Yes Frequency: regular Sterile Vaginal Examination Dilation: 5 cm Effacement (%): 70% Station: -2 Cervical Consistency: Soft Cervical Position: Middle Postion/Presentation: Cephalic presentation (by exam) Assessment and Plan Status: Reassuring Group B Streptococcus: Positive Anticipate: Vaginal Delivery Additional Comments To room for discussion of plan of care. Currently on a pit of 4 without ability to increase given intermittent variable and late decelerations. Although reassuring given return to baseline and moderate variability. Discussed AROM as she has not progressed if her baby is well applied. Discussed risks to include cord prolapse, NRFHT, and patient would like to proceed. SVE performed and 5/80/-2, AROM performed (clear) and FSE/IUPC placed for improved monitoring. Initial FSE positional and was replaced. Variable decelerations resulted after ROM and amnioinfusion was started with 200cc bolus resulting in early decelerations and return to baseline of 140bpm. Overall reassuring, will continue to monitor closely She otherwise has CHTN and her BP is stable. She is GBS+ and has had multiple doses of PCN. Her other complications include excessive weight gain at 52#, CF carrier with negative partner testing. Rh negative with administration of rhogam at 28wk. Elevated 1h normal 3h GTT. History of endometriosis. Varicella non-immune. PARIS QUAN DO Sep 21, 2020 09:52
--- NOTE | 2020-09-21 13:22 | IPNPDOC ---
Obstetrical Progress Note Date of Service Sep 21, 2020 Subjective To room for assessment after complaint of increased pressure. Objective Vital Signs Date Time Temp Pulse Resp B/P (MAP) Pulse Ox O2 Delivery O2 Flow Rate FiO2 09/21/20 12:13 66 18 121/66 (84) 09/21/20 11:09 98.4 09/20/20 19:13 98 Room Air Assessment Heart Rate (FHR): 130 Variability: Moderate Accelerations: Positive Decelerations: Early, Variable Heart Rate Tracing: Category II Tocometer Contractions: Yes Frequency: regular Sterile Vaginal Examination Dilation: 6 cm Effacement (%): 90% Station: -2 Cervical Consistency: Soft Cervical Position: Anterior Postion/Presentation: Cephalic presentation (by exam) Assessment and Plan Status: Reassuring Group B Streptococcus: Positive Anticipate: Vaginal Delivery Additional Comments To room for assessment of increased pressure. SVE 6/90/-2, cephalic by exam. CAT II FHR tracing for intermittent variable decels but <50% of contractions and good variability, overall reassuring. Early decelerations are noted. Will continue to monitor and perform SVE in 2-4h or sooner if clinically indicated. PARIS QUAN DO Sep 21, 2020 13:22
--- NOTE | 2020-09-21 15:25 | IPNPDOC ---
Obstetrical Progress Note Date of Service Sep 21, 2020 Subjective To room for assessment of decelerations. Objective Vital Signs Date Time Temp Pulse Resp B/P (MAP) Pulse Ox O2 Delivery O2 Flow Rate FiO2 09/21/20 15:10 83 18 125/77 (93) 09/21/20 14:13 97.6 09/20/20 19:13 98 Room Air Assessment Heart Rate (FHR): 130 Variability: Moderate Accelerations: Positive Decelerations: Early, Variable Heart Rate Tracing: Category II Tocometer Contractions: Yes Frequency: regular Sterile Vaginal Examination Dilation: 7 cm Effacement (%): 90% Station: -1 Assessment and Plan Status: Reassuring Anticipate: Vaginal Delivery Additional Comments To room for assessment of decels. Patient reports more pressure. CAT II tracing for intermittent variable decels but after pitocin shut off resolved back to baseline and early decelerations noted. Overall remained moderate variability and thus reassuring. contractions regular. Progressed from 6 to 7cm in 2h. Will continue to monitor. Discussed that if cervix is not changing or if FHR become non-reassuring may be indicated. Will continue to closely monitor, plan for recheck in 2h or sooner if clinically indicated. PARIS QUAN DO Sep 21, 2020 15:25
[2020-09-21] MEDS: ACETAMINOPHEN 500 MG TAB PO PRN ×2 (16:04→16:09)
--- NOTE | 2020-09-21 17:55 | IPNPDOC ---
Obstetrical Progress Note Date of Service Sep 21, 2020 Subjective To room for assessment of report of increased pressure. Objective Vital Signs Date Time Temp Pulse Resp B/P (MAP) Pulse Ox O2 Delivery O2 Flow Rate FiO2 09/21/20 17:12 64 18 118/56 (76) 09/21/20 16:23 97.5 09/20/20 19:13 98 Room Air Assessment Heart Rate (FHR): 130 Variability: Moderate Accelerations: Positive Decelerations: Variable Heart Rate Tracing: Category II Tocometer Contractions: Yes Frequency: regular Sterile Vaginal Examination Dilation: 9 cm Effacement (%): 100% Station: +1 Cervical Consistency: Soft Cervical Position: Anterior Postion/Presentation: Cephalic presentation (by exam) Assessment and Plan Status: Reassuring Anticipate: Vaginal Delivery Additional Comments Initially with CAT I tracing, stimulation after exam cased a single deceleration but this resolved to CAT I. Her contractions have spaced out as her pit has been off since her prior deceleration and her MVU are not adequate but her cervix did change in 2.5h from 7 to 9cm. If CAT I for 30 min after decel at time of exam with start on low dose pitocin to encourage more frequent contractions. Otherwise everything is overall reassuring and will continue to monitor and plan to recheck in 2h or sooner if clinically indicated. PARIS QUAN DO Sep 21, 2020 17:55
[2020-09-21] MEDS ORDERED: OXYTOCIN DRIP 30 UNITS in IV 1 EA IV SCH (20:40)
[2020-09-21] MEDS ORDERED: LR 1,000 ML IV SCH (20:40)
[2020-09-21] MEDS ORDERED: IBUPROFEN 600MG TAB PO PRN (20:45)
[2020-09-21] MEDS ORDERED: MEASLES,MUMPS,RUBELLA VACCINE INJ (MMR-II) (90707) SC SCH (20:45)
[2020-09-21] MEDS ORDERED: ACETAMINOPHEN 500 MG TAB PO PRN (20:45)
[2020-09-21] MEDS ORDERED: BENZOCAINE 20% HEMORRHOIDAL OINTMENT 28GM TUBE TOP PRN (20:45)
[2020-09-21] MEDS ORDERED: DOCUSATE SODIUM 100MG CAPSULE PO PRN (20:45)
[2020-09-21] MEDS ORDERED: ACETAMINOPHEN TAB 650MG DOSE (2X325MG) PO PRN (20:45)
[2020-09-21] MEDS ORDERED: miSOPROStol 200 MCG TAB (S0191) PR ONE (20:45)
[2020-09-21] MEDS ORDERED: RHOGAM 300 MCG (1500 IU) INJ (J2790) IM SCH (20:45)
--- NOTE | 2020-09-21 20:54 | DNPDOC ---
[facility] Delivery Note Delivery Note DATE OF DELIVERY: 09/21/20 PREDELIVERY DIAGNOSIS: 38+1/7 weeks' gestation and labor. POST DELIVERY DIAGNOSIS: Delivered. PROCEDURE: Spontaneous vaginal delivery CENTRAL SERVICE TECHNICIAN: Dr. Giovany Quan DO ANESTHESIA: epidural ESTIMATED BLOOD LOSS: 150 mL. FINDINGS: 2990g, Score 8/9, nuchal cord times 0 DELIVERY SUMMARY: 19yo G1 now P1 at 38+1 was being induced for CHTN. Her induction began with a DLFB and cytotec. She was then induced with pitocin. During her induction she had variable and late decelerations and required FSE, IUPC, amnioinfusion, and pitocin shut off. She resolved to CAT I and progressed to C/C/+3 without pitocin. With good maternal effort the head delivered in the BEBE position. The left shoulder was delivered anteriorly with sidney downward traction followed by the posterior shoulder and corpus without difficulty. The baby had spotaneous movement and cry. The cord clamping was delayed 60s and the cord was cut by the father of the baby. Cord gasses and blood were obtained. The placenta was delivered spontaneously with the aid of sidney traction and was in-tact. With the aid of uterine massage and pitocin the uterus was firm and bleeding was scant. The vagina was inspected and there was a hemostatic laceration that was to the left of the clitoris extending to the left labia that was left to heal. There was a first degree perineal laceration that was repaired with 2-0 vicryl in the usual fashion. The surgical sites were hemostatic. The uterus was palpated and had moderate tone in the lower segment, 1000mcg cytotec was administered WA and the tone improved and the bleeding was scant. The sponge, lap, and needle counts were correct x2 and there were no complications. GIOVANY QUAN DO Sep 21, 2020 20:53
[2020-09-21 21:30] LABS: CORD GAS ABE V -4.6; CORD GAS HCO3 V 20.9 MEQ/L; CORD GAS O2 SAT V 77.8 %; CORD GAS PCO2 V 40.2 mmHg; CORD GAS PH V 7.334 UNITS; CORD GAS PO2 V 34.2 mmHg; CORD GAS SBC V 20.2 MEQ/L; CORD GAS TCO2 V 22.1 MEQ/L
[2020-09-21] MEDS: IBUPROFEN 800 MG TAB PO PRN (21:30)
--- NOTE | 2020-09-22 05:17 | IPNPDOC ---
Progress Note Date of Service: Sep 22, 2020 Day#: 1 Progress Note SUBJECT: 19yo s/p after IOL for CHTN no meds c/b 1MLL PPD1. She has b een ambulating, voiding spontaneously without issue and tolerating regular diet. Breast feeding without issue. Reports lochia is [like a normal period]. Patient is ambulating well. Denies any pain. Voiding and stooling without difficulty. OBJECTIVE: VITAL SIGNS: Within normal limits, afebrile. Alert and oriented times three. No increased WOB Non-tachycardic Abdomen: Fundus firm at U-2. Soft, NTTP. Minimal lochia. ASSESSMENT: 19yo s/p after IOL for CHTN no meds c/b 1MLL PPD1. Vitals within normal limits, afebrile, hemodynamically stable with no evidence of infection. PLAN: 1. Discharge to home tomorrow for G1 2. Tylenol and Motrin for pain. 3. Encourage breast feeding and ambulation. 4. Undecided contraception, discussed options safe with and risks of close interval 5. Routine PP visit in 6 weeks in clinic. 6. Discussed return precautions at length. VS, I&O, 24H, Fishbone Vital Signs/I&O Vital Signs Date Time Temp Pulse Resp B/P (MAP) Pulse Ox O2 Delivery O2 Flow Rate FiO2 09/21/20 22:00 98.4 89 16 134/69 (90) 09/21/20 19:11 98 Room Air I&O- Last 24 Hours up to 6 AM 09/22/20 05:59 Intake Total 5579.1 ml Output Total 4250 ml Balance 1329.1 ml Laboratory Data 24H LABS Laboratory Tests 2 09/21/20 21:21: Cord Venous Blood pH 7.334, Cord Venous Blood PCO2 40.2, Cord Venous Blood PO2 34.2, Cord Venous Blood HCO3 20.9, Cord Venous Blood Total CO2 22.1, Cord Venous Base Excess (Actual) -4.6, Cord Venous Base Excess (Standard) 20.2, Cord Venous Blood Oxygen Saturation 77.8 PARIS QUAN DO Sep 22, 2020 05:17
[2020-09-22 06:00] VITALS: BP 125/75
[2020-09-22] MEDS: IBUPROFEN 800 MG TAB PO PRN ×2 (08:26→20:17)
[2020-09-22] MEDS: PRENATAL VITAMINS CHEWABLE TABLET PO SCH (08:26)
[2020-09-22 10:20] VITALS: BP 120/67
[2020-09-22 14:22] VITALS: BP 122/68
[2020-09-22 17:43] VITALS: BP 138/74
[2020-09-22] MEDS ORDERED: BENZOCAINE 20% HEMORRHOIDAL OINTMENT 28GM TUBE TOP PRN (20:15)
[2020-09-22 22:00] VITALS: BP 132/76
[2020-09-23 02:00] VITALS: BP 128/72
[2020-09-23 05:52] VITALS: BP 132/65
[2020-09-23] MEDS ORDERED: DOK1CAP7 PO (06:55)
[2020-09-23] MEDS ORDERED: IBUP-1022 PO (06:55)
[2020-09-23] MEDS: PRENATAL VITAMINS CHEWABLE TABLET PO SCH (10:12)
[2020-09-23] MEDS: IBUPROFEN 800 MG TAB PO PRN (10:42)
--- NOTE | 2020-09-24 06:31 | DSES ---
DISCHARGE SUMMARY DATE OF ADMISSION: 09/20/2020 DATE OF DISCHARGE: 09/23/2020 BRIEF HISTORY: A 19-year-old 1 now para 1 admitted at 38 weeks gestation for induction of labor because of chronic hypertension. She had a spontaneous vaginal delivery male infant weighing 6 pounds, 9 ounces, 2990 grams, Apgars of 8 and 9 at 1 and 5 minutes respectively. On her second day we discussed phlebitis, cystitis, mastitis, endometritis, and cellulitis, diet, exercise, pain management, perineal, breast and wound care. PHYSICAL EXAMINATION: On examination today her blood pressure was 132/65, respirations 18, pulse 85, temperature 98.2. She was diagnosed with chronic hypertension, was on no medication. Her admitting hemoglobin was 11.0, hematocrit 35.1 and platelets are 324,000. The rest of the examination is unremarkable. Normocephalic, atraumatic. Neck with full range of motion. Pupils equal and reactive to light. Distal pulses are symmetric. No evidence of DVT, PE or superficial phlebitis. Chest is clear bilaterally at bases. No wheezes or rhonchi. No CVA tenderness. Abdomen is soft. Four quadrant bowel sounds are noted. Uterus two below, lochia is moderate. The perineum is intact. No rashes, lesions or pruritus. No arthralgias or myalgias. No complaint of joint pain. No complaint of cough, wheeze, shortness of breath, or dyspnea on exertion. No nausea, vomiting, diarrhea or constipation. SUMMARY: We have a term gestation, delivered a live male infant. 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 Will have a six week checkup to discuss control. All questions were answered, a 20 minute discussion. Patient was discharged improved.
== END 2020-09-23 18:35 | disposition home or self-care (01) | DRG 807 ==
LOC: M LDI 10:28 → M OBS 09-21 21:55
PROVIDERS: ADMIT Registered Nurse; ATTEND Obstetrics & Gynecology
PROC: 0HQ9XZZ Repair Perineum Skin, External Approach (ICD-10-PCS; 2020-09-20)
PROC: 3E0P7GC Introduction of Other Therapeutic Substance into Female Reproductive, Via Natural or Artificial Opening (ICD-10-PCS; 2020-09-20)
PROC: 10E0XZZ Delivery of Products of Conception, External Approach (ICD-10-PCS; principal; 2020-09-21)
PROC: 10907ZC Drainage of Amniotic Fluid, Therapeutic from Products of Conception, Via Natural or Artificial Opening (ICD-10-PCS; 2020-09-21)
DX: O10.02 Pre-existing essential hypertension complicating childbirth (principal); Z37.0 Single live birth; Z3A.38 38 weeks gestation of pregnancy; O99.824 Streptococcus B carrier state complicating childbirth; O76 Abnormality in fetal heart rate and rhythm complicating labor and delivery; O70.0 First degree perineal laceration during delivery